=== PATIENT | male | born 1995 | race Caucasian/White ===

== ENCOUNTER 2017-10-18 02:26 | Emergency (ER) | payer BC ==
[~2017-10-18] VITALS: Ht 172.7 cm; Wt 83.9 kg
[2017-10-18] MEDS ORDERED: METOCLOPRAMIDE HCL 10 MG/2 ML VIAL. IV PRN (03:00)
[2017-10-18] MEDS ORDERED: ONDANSETRON PF 4 MG/2 ML VIAL. IV ONE (03:00)
[2017-10-18] MEDS ORDERED: IV NORMAL SALINE 1,000ML 1,000 ML IV ONE ×2 (03:00)
[2017-10-18 03:01] LABS: BASO # 0.1 x10^3/uL (0.0-0.2); BASO % 0 % (0-3); EOS # 0.1 x10^3/uL (0.0-0.7); EOS % 1 % (0-3); HEMATOCRIT 49.1 % (39.0-53.0); HEMOGLOBIN 16.6 g/dL (13.0-17.5); LYMPH # 0.9 x10^3/uL (1.0-4.8); LYMPH % 6 % (24-48); MEAN CORPUSCULAR HEMOGLOBIN 28 pg (25-35); MEAN CORPUSCULAR HGB CONC 34 g/dL (31-37); MEAN CORPUSCULAR VOLUME 82 fL (79-100); MONO # 1.2 x10^3/uL (0.0-1.1); MONO % 8 % (0-9); NEUT % 85 % (31-73); PLATELET COUNT 333 x10^3/uL (140-400); RED BLOOD COUNT 6.02 x10^6/uL (4.30-5.70); RED CELL DISTRIBUTION WIDTH 14.1 % (11.5-14.5); WHITE BLOOD COUNT 15.3 x10^3/uL (4.0-11.0)
[2017-10-18 03:21] LABS: % BANDS 2 % (0-9); % EOS 1 % (0-5); % LYMPHS 9 % (24-48); % MONOS 6 % (0-10); % SEGS 82 % (35-66); PLT ESTIMATE ADEQUATE (ADEQUATE)
[2017-10-18 03:28] LABS: ALBUMIN 4.5 g/dL (3.4-5.0); CALCIUM 9.5 mg/dL (8.5-10.1); CREATININE 1.1 mg/dL (0.7-1.3); DIRECT BILIRUBIN 0.2 mg/dL (0.0-0.2); POTASSIUM 3.8 mmol/L (3.5-5.1); TOTAL BILIRUBIN 0.6 mg/dL (0.2-1.0); TOTAL PROTEIN 8.3 g/dL (6.4-8.2)
--- NOTE | 2017-10-18 03:52 | EKG ---
[address] [address] Test Date: 2017-10-18 Test Time: 03:08:54 Pat Name: SAPPHIRE MADDEN Department: Room: Gender: M Bilingual Sales Representative: EZEQUIEL : 1995 Requested By: GENEVA STORM Order Number: [id number] Reading MD: Long Gandara Measurements Intervals Barto Rate: 103 P: 31 MS: 144 QRS: 36 QRSD: 84 T: 24 QT: 306 QTc: 403 Interpretive Statements SINUS TACHYCARDIA Electronically Signed On 10-25-2017 9:28:47 NAIL KEGGER by Long Gandara
--- NOTE | 2017-10-18 04:17 | PHYS DOC ---
Past History Past Medical History: No Pertinent History Past Surgical History: No Surgical History Alcohol Use: Occasionally Drug Use: None Adult General Chief Complaint Chief Complaint: NAUSEA/VOMITING/DIARRHEA HPI HPI 22-year-old male presenting to the emergency department today with nausea and vomiting. He reports this started about 3 or 4 hours ago. He reports also having fever earlier. He describes watery stool with his nausea and vomiting. He reports a generalized crampiness of the abdomen without localizing pain that radiates to the back as well. To sharp shooting mild to moderate pain. No alleviating factors. No meds given prior to arrival. Patient arrives by POV. he also reports having one episode of syncope. Review of systems is negative for chest pain shortness of breath. Positive for fevers at home. Negative for constipation. Positive for diarrhea. All other review of systems is negative unless otherwise noted in history of present illness. ED course: 22-year-old male presenting to the emergency department with nausea vomiting and fever. On arrival the patient is afebrile with tachycardia. On examination patient has a soft and nontender abdomen. Negative McBurney's point. Negative Nicholson sign. No CVA tenderness. Lungs are clear to auscultation bilaterally. no nuchal rigidity. Negative Brudzinski sign. Negative Kernig sign. Otherwise unremarkable exam. Blood work obtained which shows mild leukocytosis. CT the abdomen pelvis obtained which suggested a proximal to mid partial small bowel obstruction with mild mesenteric lymphadenitis. I paged our surgeon on-call Dr. Jaquez and discussed case with him. He recommends the patient be placed nothing by mouth. He recommends not placing NG tube for now since the pts n/v is controlled. He recommends patient be admitted to [facility]. I discussed this with the patient. The patient is feeling much better. The patient does not desire to be admitted to the hospital. I explained the reasoning for admission being that he has a small bowel obstruction. The patient desires to leave AGAINST MEDICAL ADVICE. I informed the patient of their right to a medical screening exam and any treatment and/or stabilization that may be necessary regardless of their ability to pay. The patient appears to have intact insight, judgment, and reason. In my opinion, this patient has the capacity to make decisions. The patient presented with n/v and was found to have an obstruction. I desire for the patient to be admitted to the hospital for medical monitoring, and surgical consultation. My initial plan prior to the pt expressing the desire to leave was admission to [facility] and the patient nothing by mouth and consulting our surgeon. I explained the risk of and disability to the patient in plain language which they were able to demonstrate in their own words verbal understanding. The pt has verbalized understanding of my concerns. I offered alternatives to the therapy including admission to another hospital or transfer. I recommended the pt follow up with PCP later today. I explained that at any time if the patient changed their mind, we are always open and would be happy to have them back. The patient refused further care and then left against medical advice. Review of Systems Review of Systems SEE ABOVE. Current Medications Current Medications Current Medications Medications (Trade) Dose Ordered Sig/Valerie Start Time Stop Time Status Last Admin Dose Admin Metoclopramide HCl (Reglan Vial) 10 mg PRN 1X PRN 10/18/17 03:00 10/18/17 03:43 DC 10/18/17 03:28 10 MG Ondansetron HCl (Zofran) 4 mg 1X ONCE 10/18/17 03:00 10/18/17 03:43 DC 10/18/17 02:58 4 MG Sodium Chloride 1,000 ml @ 1,000 mls/hr 1X ONCE 10/18/17 03:00 10/18/17 03:59 DC 10/18/17 03:00 1,000 MLS/HR Allergies Allergies Allergies Coded Allergies Type Severity Reaction Last Updated Verified No Known Drug Allergies 10/18/17 No Physical Exam Physical Exam SEE ABOVE Constitutional: Well developed, well nourished, no acute distress, non-toxic appearance. [] HENT: Normocephalic, atraumatic, bilateral external ears normal, oropharynx moist, no oral exudates, nose normal. [] Eyes: PERRLA, EOMI, conjunctiva normal, no discharge. [] Neck: Normal range of motion, no tenderness, supple, no stridor. [] Cardiovascular:Heart rate regular rhythm, no murmur [] Lungs & Thorax: Bilateral breath sounds clear to auscultation [] Abdomen: Bowel sounds normal, soft, no tenderness, no masses, no pulsatile masses. Skin: Warm, dry, no erythema, no rash. [] Back: No tenderness, no CVA tenderness. [] Extremities: No tenderness, no cyanosis, no clubbing, ROM intact, no edema. [] Neurologic: Alert and oriented X 3, normal motor function, normal sensory function, no focal deficits noted. [] Psychologic: Affect normal, judgement normal, mood normal. [] Current Patient Data Vital Signs Vital Signs Date Time Temp Pulse Resp B/P (MAP) Pulse Ox O2 Delivery O2 Flow Rate FiO2 10/18/17 03:20 101 20 134/78 (96) 97 Room Air 10/18/17 02:26 99.3 Lab Results Laboratory Tests Test 10/18/17 02:45 White Blood Count 15.3 x10^3/uL (4.0-11.0) H Red Blood Count 6.02 x10^6/uL (4.30-5.70) H Hemoglobin 16.6 g/dL (13.0-17.5) Hematocrit 49.1 % (39.0-53.0) Mean Corpuscular Volume 82 fL (79-100) Mean Corpuscular Hemoglobin 28 pg (25-35) Mean Corpuscular Hemoglobin Concent 34 g/dL (31-37) Red Cell Distribution Width 14.1 % (11.5-14.5) Platelet Count 333 x10^3/uL (140-400) Neutrophils (%) (Auto) 85 % (31-73) H Lymphocytes (%) (Auto) 6 % (24-48) L Monocytes (%) (Auto) 8 % (0-9) Eosinophils (%) (Auto) 1 % (0-3) Basophils (%) (Auto) 0 % (0-3) Neutrophils # (Auto) 13.0 x10^3uL (1.8-7.7) H Lymphocytes # (Auto) 0.9 x10^3/uL (1.0-4.8) L Monocytes # (Auto) 1.2 x10^3/uL (0.0-1.1) H Eosinophils # (Auto) 0.1 x10^3/uL (0.0-0.7) Basophils # (Auto) 0.1 x10^3/uL (0.0-0.2) Segmented Neutrophils % 82 % (35-66) H Band Neutrophils % 2 % (0-9) Lymphocytes % 9 % (24-48) L Monocytes % 6 % (0-10) Eosinophils % 1 % (0-5) Platelet Estimate Adequate (ADEQUATE) Sodium Level 136 mmol/L (136-145) Potassium Level 3.8 mmol/L (3.5-5.1) Chloride Level 100 mmol/L (98-107) Carbon Dioxide Level 27 mmol/L (21-32) Anion Gap 9 (6-14) Blood Urea Nitrogen 15 mg/dL (8-26) Creatinine 1.1 mg/dL (0.7-1.3) Estimated GFR (Cockcroft-Gault) 83.0 Glucose Level 101 mg/dL (70-99) H Calcium Level 9.5 mg/dL (8.5-10.1) Total Bilirubin 0.6 mg/dL (0.2-1.0) Direct Bilirubin 0.2 mg/dL (0.0-0.2) Aspartate Amino Transferase (AST) 19 U/L (15-37) Alanine Aminotransferase (ALT) 35 U/L (16-63) Alkaline Phosphatase 76 U/L (46-116) Total Protein 8.3 g/dL (6.4-8.2) H Albumin 4.5 g/dL (3.4-5.0) Lipase 148 U/L (73-393) EKG EKG sinus tachycardia. ST segments congruent. Intervals within normal limits. QT within normal limits. Not suggestive of WPW, or Brugada. Not suggestive of hypertrophic obstructive cardiomyopathy. Reviewed by myself[] Radiology/Procedures Radiology/Procedures [] Course & Med Decision Making Course & Med Decision Making Pertinent Labs and Imaging studies reviewed. (See chart for details) [] Dragon Disclaimer Dragon Disclaimer This electronic medical record was generated, in whole or in part, using a voice recognition dictation system. Departure Departure: Impression: Primary Impression: N&V (nausea and vomiting) Additional Impression: Tachycardia Disposition: 07 AGAINST MEDICAL ADVICE Condition: GUARDED Referrals: ANTHONY BRAVO MD (PCP) Patient Instructions: Small Bowel Obstruction Additional Instructions: Thank you for allowing us to participate in your care today. If at any time you change your mind, we will be happy to see you and admit you to the hospital. Followup with your primary care physician later today. Call your Primary Doctor tomorrow and inform them of your visit today. If you do not have a primary care provider you can ask for a list of our primary care providers. Return to the emergency department you have any new or concerning findings. This should be evaluated by the primary care physician and any necessary consulting services for continued management within a few days after discharge. Return to emergency room if you have any new or concerning symptoms including but not limited to fever, chills, nausea, vomiting, intractable pain, any new rashes, chest pain, shortness of air, uncontrolled bleeding, difficulty breathing, and/or vision loss. Scripts Ondansetron (ZOFRAN ODT) 4 Mg Tab.rapdis 1 TAB SL PRN Q8HRS Y for NAUSEA/VOMITING, #4 TAB Prov: GENEVA STORM MD 10/18/17 Problem Qualifiers GENEVA STORM MD Oct 18, 2017 04:17
[2017-10-18] MEDS ORDERED: CONTRAST GIVEN MC PRN (04:30)
[2017-10-18] MEDS ORDERED: IOHEXOL 300 MG/ML 75 ML VIAL. IV ONE (04:30)
[2017-10-18 04:44] LABS: BACTERIA,URINE 0 /HPF (0-FEW); BILIRUBIN,URINE NEG (NEG); CLARITY,URINE CLEAR; COLOR,URINE YELLOW; GLUCOSE,URINE NEG (NEG); NITRITE,URINE NEG (NEG); RBC,URINE 0 /HPF (0-2); SQUAMOUS EPITHELIAL CELL,UR OCC /LPF; UROBILINOGEN,URINE 0.2 mg/dL (0.2 mg/dL); WBC,URINE RARE /HPF (0-4)
--- NOTE | 2017-10-18 04:55 | RAD ---
CT SCAN OF THE ABDOMEN AND PELVIS WITH IV CONTRAST. History: Abdominal pain Comparison:None. Procedure: Contiguous axial images of the abdomen and pelvis were performed after the administration of 75 cc of Omni 300 IV contrast and without oral contrast. CT Abdomen with contrast: Findings: Liver: Unremarkable Spleen: Unremarkable Pancreas: Unremarkable Adrenal Glands: Unremarkable Kidneys: Unremarkable There are numerous small and borderline size mesenteric lymph nodes. There is no free air. There is no free fluid. There is multiple mildly distended loops of small bowel in left upper quadrant. CT Pelvis with Contrast: Findings: The urinary bladder appears normal. There is no free fluid. There is no lymphadenopathy. Impression: 1. Distended fluid-filled loops of small bowel suggests a proximal to mid partial small bowel obstruction. 2. Mild mesenteric lymphadenopathy could be lymphadenitis. PQRS Compliance Statement: One or more of the following individualized dose reduction techniques were utilized for this examination: 1. Automated exposure control 2. Adjustment of the mA and/or kV according to patient size 3. Use of iterative reconstruction technique Electronically signed by: Percy Rich III, MD (10/18/2017 4:51 AM) [id number]
[2017-10-18 05:32] VITALS: BP 104/63
[2017-10-18] MEDS ORDERED: ONDA4TAB10 SL (05:36)
== END 2017-10-18 05:40 | disposition left against medical advice (07) ==
LOC: ER 02:26
DX: R11.2 Nausea with vomiting, unspecified (principal); R00.0 Tachycardia, unspecified; R55 Syncope and collapse
CPT/HCPCS: 36415; 74177; 80048; 80076; 81001; 83690; 85007; 85025; 93005; 96374; 96375; 99285; J2405; J2765; Q9967; 96361; J7030